=== PATIENT | male | born 1980 | race Two or more races ===

== ENCOUNTER 2022-12-25 23:38 | Emergency (ER) | payer MEDICAID, OTHER ==
[~2022-12-25] VITALS: Ht 170.2 cm; Wt 95.7 kg
--- NOTE | 2022-12-25 23:55 | NUR ---
PT BIBRA C/O ETOH AND N/V. PT AAOX 4 BREATHING EVENLY AND UNLABORED. PT ATTACHED TO MONITOR AND POX.
[2022-12-26] MEDS ORDERED: IV NS 0.9% 1,000 ML IV ONE (00:30)
[2022-12-26] MEDS ORDERED: ONDANSETRON HCL/PF 4 MG/2 ML VIAL IV ONE (00:30)
[2022-12-26] MEDS ORDERED: ONDANSETRON HCL/PF 4 MG/2 ML VIAL ONE (00:32)
--- NOTE | 2022-12-26 01:15 | NUR ---
SPOKE TO DONALD, ETHANOL LEVEL IS BEING PROCESS
--- NOTE | 2022-12-26 02:46 | NUR ---
Patient discharged to home in stable condition. Written and verbal after care instructions given. Patient verbalizes understanding of instruction. Pt ambulated with steady gait, VSS.
[2022-12-26 03:29] VITALS: BP 131/76
== END 2022-12-26 03:29 | disposition home or self-care (01) ==
LOC: ER 23:40
DX: F10.129 Alcohol abuse with intoxication, unspecified (principal); R11.2 Nausea with vomiting, unspecified; Y90.5 Blood alcohol level of 100-119 mg/100 ml
CPT/HCPCS: 99283; 36415; 96374; 80320; J2405; G0480; J7030